=== PATIENT | female | born 1945 | race Caucasian/White ===

== ENCOUNTER 2024-11-09 08:44 | Outpatient (REF) | payer MEDICARE, SELFPAY ==
[2024-11-09 09:18] LABS: Basophils Percent Auto 0.2 % (0-2); Eosinophils Percent Auto 0.2 % (0-4); Hemoglobin 9.9 g/dl (12.0-16.0); Imm Gran Abs Auto 0.01 X10*3/uL (0.00-0.03); Imm Gran Pct Auto 0.2 % (0.0-0.4); Lymphocytes Absolute Auto 0.8 X10*3/uL (1.2-4.9); Lymphocytes Percent Auto 17.2 % (20-40); MANUAL DIFF FLAG SCAN; Mean Corpuscular Volume 90.9 fL (80.0-98.0); Mean Platelet Volume 8.8 fL (9.4-12.3); Monocytes Absolute Auto 0.9 X10*3/uL (0.1-1.2); Monocytes Percent Auto 20.8 % (2-11); Neutrophils Absolute Auto 2.7 x10*3/uL (2.0-8.3); Neutrophils Percent Auto 61.4 % (45-73); Platelet Count 192 X10*3/uL (160-400); Red Cell Distribution Width 17.4 % (11.0-16.0); SCAN SMEAR FLAG 1; White Blood Count 4.4 X10*3/uL (4.8-10.8)
--- OUTSIDE RECORDS SUMMARY | 2024-11-09 09:18 | XMS_ITS | Clinical Summary ---
Author Organization [facility], Address [address] [place] [address] [place] [address] Phone Care Team Providers Care Spool Maker Name Role Phone Rose Bhatt MD Primary Care Provider Allergies Active Allergy Reactions Criticality Noted Date Comments Penicillins Other (see comments) 12/04/2019 Medications ARIPiprazole (ABILIFY) 20 MG tablet Comments: Filled Date: Jan 13 2018 12:00AM Patient Notes: TK 1 T PO QD Duration: 30 8 Active gabapentin (NEURONTIN) 300 MG capsule Comments: Filled Date: Jan 04 2018 12:00AM Patient Notes: TK ONE C PO QAM AND QPM FOR 2 WEEKS THEN 1 C PO TID Duration: 34 8 Active carBAMazepine XR (TEGretol XR) 200 MG 12 hr tablet 1 Active clindamycin (CLEOCIN) 300 MG capsule TAKE 2 CAPSULES BY MOUTH 1 HOUR PRIOR TO DENTAL APPOINTMENT 2 Active buPROPion SR (WELLBUTRIN SR) 150 MG 12 hr tablet Take 150 mg by mouth 1 (one) time each day 3 Active Denosumab (Prolia) 60 MG/ML solution prefilled syringe Inject under the skin 2 Active famciclovir (FAMVIR) 250 MG tablet 2 Active Melatonin 5 MG tablet Take 1 tablet by mouth at bed time 3 Active niacinamide 100 MG tablet Take 100 mg by mouth in the morning and 100 mg in the evening. Take with meals. Active Cholecalciferol (Vitamin D) 25 MCG (1000 UT) tablet Take 1,000 Units by mouth 1 (one) time each day Active Multiple Vitamins-Minera ls (PRESERVISION AREDS 2 PO) Take 1 Capful by mouth in the morning and 1 Capful in the evening. Active Urea 15 g pack Take 10 g by mouth in the morning and 10 g in the evening. 60 each 5 4 Active Urea powder 10 mg in the morning and 10 mg in the evening. 1000 g 3 4 Active mycophenolate (CELLCEPT) 500 MG tablet TAKE 2 TABLETS BY MOUTH 2 TIMES A DAY 360 tablet 2 4 Active Active Problems Problem Noted Date Diagnosed Date History of immunosuppressive therapy 06/04/2022 Hypertensive disorder 11/11/2021 Hypo-osmolality and or hyponatremia 03/17/2021 Chronic kidney disease stage 2 12/04/2019 History of renal transplant 12/04/2019 Chronic kidney disease due to hypertension 12/03 Resolved Problems Problem Noted Date Diagnosed Date Resolved Date Personal history of immunosuppression therapy 08/02/20 22 08/02/2022 Chronic kidney disease 06/04/202208/02 Encounters Date Type Department Care Team Description 11/05/2024 Telephone [facility] [address] [place] [address] Yaima Mcgee MA from Last 3 Months Immunizations Name Administration Dates Next Due Influenza Split High Dose Pr eservative Free IM 06/13/2019,07/06/2016,06/23/2015 Influenza Vaccine, Quadrivalent, Adjuvanted 10/2019 Influenza, Unspecified 06/18/2021,06/06/2020 Moderna SARS-CoV-2 Bivalent 12+ 05/24/2022 Pfizer SARS-COV-2 04/24/2021,11/04/2020,10/12/19 21 Pneumococcal Conjugate 13-Valent 04/13/2019 SARS-CoV-2, Unspecified 12/09/2021 Zoster 07/04/2019,04/13/2019 Family History Medical History Relation Comments Kidney disease Mother Cancer Sibling 1 Hypertension Sibling 2 Cancer Sibling 3 Relation Status Comments Father Mother Sibling 1 Sibling 2 Sibling 3 Social History Tobacco Use Types Packs/Day Years Used Date Smoking Tobacco: Never Tobacco Cessation:Counseling Given: Not Answered Alcohol Use Standard Drinks/Week Comments No 0 (1 standard drink = 0.6 oz pure alcohol) Alcoholic Drinks/day: Occasional social drink Comments Unknown Sex and Gender Information Value Date Recorded Sex Assigned at Not on file Legal Sex Female 4:33 PM EST Gender Identity Not on file Sexual Orientation Not on file Last Filed Vital Signs Vital Sign Reading Time Taken Comments Blood Pressure 104/60 08/10/2024 11:06 AM EST Pulse - - Temperature - - Respiratory Rate 22 01/23/2018 12:0 0 PM EDT Oxygen Saturation - - Inhaled Oxygen Concentration - - Weight 47.5 kg (104 lb 12.8 oz) 024 11:06 AM EST Height 162.6 cm (5' 4 ) 02/17/2024 5:35 PM EDT Body Mass Index 17.99 02/17/2024 5:35 PM EDT Plan of Treatment Upcoming Encounters Date Type Department Care Team (Late st Contact Info) Description 12/27/2024 1:30 PM EDT Office Visit [facility] [address] [place] [phone] Malcom Mc MD [address] [place] [address] [place] [phone] Health Maintenance Due Date Last Done Comments Pneumococcal Vaccine: 65+ Years (2 of 2 - PPSV23 or PCV20) 06/08/2019 04/13/2019 Influenza Vaccine (#1) 2024 1, 06/06/2020, 06/06/2020, Additional history exists Hepatitis B Vaccine Aged Out No longe r eligible based on patient's age to complete this topic Insurance MEDICARE UNICARE Care Teams Spool Maker Relationship Specialty Start Date End Date Rose Bhatt MD [address] [place] [address] [address] [place] [address] PCP - General Endocrinology 02/17/24
--- OUTSIDE RECORDS SUMMARY | 2024-11-09 09:18 | XMS_ITS | Encounter Summary ---
Author Organization [facility], [place] [address] [place] [address] Phone Care Team Providers Care Biomass Boiler Operator Name Role Phone Rose Bhatt MD Primary Care Provider Reason for Visit * Reason Comments Med Refill Encounter Details Date Type Department Care Team (Late st Contact Info) Description 08/10/2023 Refill [facility], [address] [place] [address] Malcom Mc MD [address] [place] [address] [place] [address] Social History Tobacco Use Types Packs/Day Years Used Date Smoking Tobacco: Never Alcohol Use Standard Drinks/Week Comments No 0 (1 standard drink = 0.6 oz pure alcohol) Alcoholic Drinks/day: Occasional social drink Comments Unknown Sex and Gender Information Value Date Recorded Sex Assigned at Not on file Legal Sex Female 4:33 PM EST Gender Identity Not on file Sexual Orientation Not on file documented as of this encounter Plan of Treatment Upcoming Encounters Date Type Department Care Team (Late st Contact Info) Description 12/27/2024 1:30 PM EDT Office Visit [facility] [place] [address] [place] [address] Malcom Mc MD [address] [place] [address] [place] [address] documented as of this encounter Visit Diagnoses Not on filedocumented in this encounter Care Teams Biomass Boiler Operator Relationship Specialty Start Date End Date Rose Bhatt MD [address] [place] [address] [address] [place] [phone] PCP - General Endocrinology 02/17/24 documented as of this encounter
--- OUTSIDE RECORDS SUMMARY | 2024-11-09 09:18 | XMS_ITS | Encounter Summary ---
Author Organization [facility] Address [address] [place] [address] Phone Care Team Providers Care Internal Specialist Name Role Phone Rose Bhatt MD Primary Care Provider Encounter Details Date Type Department Care Team (Late st Contact Info) Description 11/05/2024 Telephone [facility] [place], [address] [place] [address] Yaima Mcgee [place] [address] [place] [address] Social History Tobacco Use Types Packs/Day Years [...] on file documented as of this encounter Miscellaneous Notes * Telephone Encounter - Yaima Mcgee MA - 11/05/2024 10:54 AM EST Lm on vm letting pt know due to a change in the providers schedule we had to cx 11/16/24 and move to12/17/24 @330 documented in this encounter Plan of Treatment Upcoming Encounters Date Type Department Care Team (Late st Contact Info) Description 12/27/2024 1:30 PM EDT Office Visit [facility] [place] [address] [place] [phone] Malcom Mc MD [address] [place] [phone] documented as of this encounter Visit Diagnoses Not on filedocumented in this encounter Care Teams Internal Specialist Relationship Specialty Start Date End Date Rose Bhatt MD [address] [place] [address] [address] [place] [phone] PCP - General Endocrinology 02/17/24 documented as of this encounter
--- OUTSIDE RECORDS SUMMARY | 2024-11-09 09:18 | XMS_ITS | Encounter Summary ---
Author Organization [facility] [place], Address [address] [place] [address] Phone Care Team Providers Care Poultry Veterinarian Name Role Phone Rose Bhatt MD Primary Care Provider Encounter Details Date Type Department Care Team (Late st Contact Info) Description 05/26/2022 Documentation Only [facility] [place], [address] [place] [address] Eleazar Barragan MD [address] [place] [address] [place] [address] Social History Tobacco Use Types [...] Visit [facility] [place] [address] [place] [address] Malcom Mc MD [address] [facility] [place] [address] documented as of this encounter Visit Diagnoses Not on filedocumented in this encounter Care Teams Poultry Veterinarian Relationship Specialty Start Date End Date Rose Bhatt MD [address] [place] [address] [address] [place] [address] PCP - General Endocrinology 02/17/24 documented as of this encounter
--- OUTSIDE RECORDS SUMMARY | 2024-11-09 09:18 | XMS_ITS | Encounter Summary ---
Author Organization [facility], Address [address] [place] [address] Phone Care Team Providers Care Paint Roller Covers Supervisor Name Role Phone Rose Bhatt MD Primary Care Provider Reason for Visit * Reason Comments Med Refill Encounter Details Date Type Department Care Team (Late Contact Info) Description 03/04/2020 Refill [facility] [address] [place] [address] Clayton Fontenot MD [address] [place] [address] [place] [address] Social History Tobacco Use Types Packs/Day Years Used Date Smoking Tobacco: Never Alcohol Use Standard Drinks/Week Comments No 0 (1 standard drink = 0.6 oz pur e alcohol) Comments Unknown Sex and Gender Information Value Date Recorded Sex Assigned at Not on file Legal Sex Female 4:33 PM EST Gender Identity Not on file Sexual Orientation Not on file documented as of this encounter Plan of Treatment Upcoming Encounters Date Type Department Care Team (Late Contact Info) Description 12/27/2024 1:30 PM EDT Office Visit [facility] [address] [place] [address] Malcom Mc MD [address] [place] [address] [place] [address] documented as of this encounter Visit Diagnoses Not on filedocumented in this encounter Care Teams Paint Roller Covers Supervisor Relationship Specialty Start Date End Date Rose Bhatt MD [address] [facility] [address] [address] [place] [phone] PCP - General Endocrinology 02/17/24 documented as of this encounter
--- OUTSIDE RECORDS SUMMARY | 2024-11-09 09:18 | XMS_ITS | Continuity of Care Document ---
Author Organization [facility] [address] [facility] [address] [place] [address] Phone [phone] Care Team Providers Care Curator Horticultural Museum Name Role Phone Saba Obrien Care Team Information Receive r [phone] Problems Active Problems Provider Date Chronic anemia Robbi Roblero M.D. Onset: Thyroid nodule Robbi Roblero M.D. Onset: Osteoporosis Robbi Roblero M.D. Onset: Chronic kidney disease stage 3 Robbi Roblero M.D. Onset: 06/25/2022 Essential hypertension Robbi Roblero M.D. Ons et: 06/25/2022 Carcinoma of breast Robbi Roblero M.D. Onset: 06/25/2022 Bipolar disorder Robbi Roblero M.D. Onset: History of malignant neoplasm of breast Robbi valderrama M.D. Onset: 06/25/2022 History of bilateral mastectomy Robbi Roblero M.D. Onset: 06/25/2022 History of renal transplant Edwin Griffin Onset: 06/25/2022 Disorder of kidney and/or ureter Robbi Roblero M.D. Onset: 07/08/2023 Obstructive sleep apnea syndrome Robbi Roblero M.D. Onset: 07/01/2023 Social History Type Date Description Comments Sex Unknown Lives With Spouse Tobacco Use Start: Unknown Never Smoked Cigarettes Smoking Status Reviewed: 12/29/22 Never Smoked Cigaret lewis ETOH Use Occasionally consumes wine Allergies and adverse reactions Active Allergies Criticality Reaction Severity Comments Date Penicillin Unable to assess criticality 06/25/2022 Medications Active Medications SIG Qnty Indications Order ing Provider Date [id number]- 0.5mg Tablets bid Robbi Roblero M.D. 01/10/2024 Qwukpdoquyv101qd Tablets 1 qd Robbi Roblero M.D. 12/29/2022 Nzewmu22zy/ml Soln Prefill Syringe inject 60 mg under the skin every 6 months 1ml Robbi Roblero M.D. 06/25/2022 Mycophenolate Jcijaef332nx Tablets 2 bid Robbi Roblero M.D. 06/25/2022 Awibibu89az Tablets 1 by mouth every day 90tabs Robbi Roblero M.D. 06/25/2022 Tegretol-RA970ht Tablets ER 12HR Takes 2 tab at night Robbi Roblero M.D. 06/25/2022 [id number] Capsules Take 2 Capsules By Mouth AT Bedtime Gisele Beck PA-C Clindamycin [id number] Capsules Take 2 Capsules By Mouth 1 Hour Prior To Dental Appointment Unknown Bupropion Hydrochloride ER (SR)200mg Tablets ER 12HR 1 by mouth every day Unknown UreaPowder 10 grams twice daily Unknown Vital Signs Date Vital Result Comment 10/12/2024 3:38pm BP Systolic 126 mmHg BP Diastolic 70 mmHg Heart Rate 93 /min Height 63 inches 5'3 Weight 100.38 lb BMI (Body Mass Index) 17.8 kg/m2 Results Test Acquired Date Facility Test Result H/L Range Note Comp. Metabolic Panel (14) 10/12/2024 [facility] Glucose 115 mg/dL High 70-99 BUN 14 mg/dL 8-27 Creatinine 0.56 mg/dL Low 0.57-1.00 eGFR 92 mL/min/1.73 >59 BUN/Creatinine Ratio 25 12-28 Sodium 123 mmol/L Low 134-144 Potassium 5.3 mmol/L High 3.5-5.2 Chloride 87 mmol/L Low 96-106 Carbon Dioxide, Total 22 mmol/L 20-29 Calcium 9.8 mg/dL 8.7-10.3 Protein, Total 6.4 g/dL 6.0-8.5 Albumin 3.6 g/dL Low 3.8-4.8 Globulin, Total 2.8 g/dL 1.5-4.5 Bilirubin, Total 0.2 mg/dL 0.0-1.2 Alkaline Phosphatase 92 IU/L 44-121 Ast (Sgot) 23 IU/L 0-40 Alt (SGPT) 23 IU/L 0-32 Urinalysis Complete W Reflex To Culture 10/12/2024 [facility] Specific [place] 1.024 1.005-1.03 0 pH 5.5 5.0-7.5 Urine-Color Yellow Yellow Appearance Clear Clear WBC Esterase 1+ Abnormal Negative Protein 1+ Abnormal Negative/T race Glucose Negative Negative Ketones Negative Negative Occult Blood Negative Negative Bilirubin Negative Negative Urobilinogen,Se mi-Qn 0.2 mg/dL 0.2-1.0 Nitrite, Urine Negative Negative Microscopic Examination See below: 1 Microscopic Examination TNP Urinalysis Reflex See Comment: 2 WBC >30 /hpf Abnormal 0 - 5 RBC 0-2 /hpf 0 - 2 Epithelial Cells (non renal) 0-10 /hpf 0 - 10 Epithelial Cells (renal) TNP Casts None seen /lpf None seen Cast Type TNP Crystals Present Abnormal N/A Crystal Type Calcium Oxalate N/A Mucus Threads TNP Bacteria None seen None seen/Few Yeast TNP Trichomonas TNP Comment TNP Urine Culture, Routine Final report Result 1 See Comment: 3 CBC With Differential/ Platelet 10/12/2024 [facility] WBC 7.7 x10E3/uL 3.4-10.8 RBC 3.82 x10E6/uL 3.77-5.28 Hemoglobin 11.4 g/dL 11.1-15.9 Hematocrit 34.2 % 34.0-46.6 MCV 90 fL 79-97 MCH 29.8 pg 26.6-33.0 MCHC 33.3 g/dL 31.5-35.7 RDW 12.3 % 11.7-15.4 Platelets 386 x10E3/uL 150-450 Neutrophils 76 % Not Estab. Lymphs 11 % Not Estab. Monocytes 12 % Not Estab. Eos 1 % Not Estab. Basos 0 % Not Estab. Immature Cells TNP Neutrophils (Absolute) 5.8 x10E3/uL 1.4-7.0 Lymphs (Absolute) 0.8 x10E3/uL 0.7-3.1 Monocytes(Absol petar) 0.9 x10E3/uL 0.1-0.9 Eos (Absolute) 0.1 x10E3/uL 0.0-0.4 Baso (Absolute) 0.0 x10E3/uL 0.0-0.2 Immature Granulocytes 0 % Not Estab. Immature Grans (Abs) 0.0 x10E3/uL 0.0-0.1 NRBC TNP Hematology Comments: TNP Laboratory test finding 07/13/2024 [facility] Calcium 10.1 mg/dL 8.7-10.3 Vitamin D, 25-Hydroxy 28.7 ng/mL Low 30.0-100.0 4 Laboratory test finding 05/02/2023 [facility] Calcium 10.2 mg/dL (8.6-10.5) N-Telopeptide Cross Links, Urine 03/23/2023 [facility] [id number] Duplicate order <SEE NOTE> 5 Cross Linked N-Telopeptides 898 6 Creat, Urine 112.1 7 N-Telopeptide/C reat Ratio 91 High 8 NTX Interpretaion Comment 9 Laboratory test finding 03/23/2023 [facility] Calcium 9.6 mg/dL (8.6-10.5) 10 Laboratory test finding 07/06/2022 [facility] Calcium 9.5 mg/dL (8.6-10.5) 1 Microscopic was mal cated and was performed. 2 This specimen has re flexed to a Urine Culture. 3 Culture shows less t baron 10,000 colony forming units of bacteria per milliliter of urine. This colony count is not generally considered to be clinically significant. 4 Vitamin D deficiency has been defined by the [place] of Medicine and an Endocrine Society practice guideline as a level of serum 25-OH vitamin D less than 20 ng/mL (1,2). The Endocrine Society went on to further define vitamin D insufficiency as a level between 21 and 29 ng/mL (2). 1. IOM ([place] of Medicine). 2010. Dietary reference intakes for calcium and D. [place]: The National Academies Press. 2. Ahmet JONES, Ash RON, Olga ZARATE, et al. Evaluation, treatment, and prevention of vitamin D deficiency: an Endocrine Society clinical practice guideline. JCEM. 2010; 96(7):1911-30. 5 Duplicate order canc elled via interface 6 Reference range: Not Estab. Unit: nmol [place] [address] 7 Reference range: Not Estab. Unit: mg/dL Test performed by [facility], [address] [place] [address] 8 Reference range: 0 t o 89 Unit: nM BCE/mM Cr 9 (NOTE) The N-telopeptide and Creatinine are used to calculate the N-telo/Creat. Ratio which is referred to as NTx . Suggested guidelines for the clinical use of NTx are as follows: 1. Menopausal Women not on Hormone Replacement Therapy (HRT): Women with a baseline NTx value >38 are at significant risk for a decrease in bone mineral density (BMD) after 1 year compared to women on HRT. The probability of a decline in BMD increases with NTx value as follows: (1): Baseline NTx Probability of Decrease in BMD 18- 38 1.4 p EQ 0.28 38- 51 2.5 p EQ 0.03 51- 67 3.8 p EQ 0.0006 67-188 17.3 p EQ 0.0001 2. Menopausal Women Receiving Antiresorptive Therapy: The probability that treatment is effective after three months is increased when the measured NTx value is <or EQ 38 nM BCE/mM CHUCK SPLITTER, or NTx has decreased >or EQ 30% from baseline.[1] 3. Patients with Paget's Disease of Bone: The probability that treatment is effective after one month is increased when the measured NTx value is within the reference range, or NTx has decreased >or EQ 30% from baseline.[2] 1. Francisco Javier CH, Miller NH, Jay GS, et al. Am J Med, 102:29-37,1997. (1):M757, 1996. 2. Bone H, Willam J, et al. J Bone Min Res.11(1):M757,1996 [place] [address] 10 Duplicate order canc elled via interface Medical Devices Description No Information Available Encounters Type Date Location Provider Dx Diagnosis Office Visit 11/06/2024 1:35p Main Office PALOMO [place]ida M81.0 Age-related osteoporosis w/o current pathological fracture F31.9 Bipolar disorder, un specified Assessments Date Code Description Provider 11/06/2024 M81.0 Age-related oste oporosis without current pathological fracture PALOMO Merida 11/06/2024 F31.9 Bipolar disorder PALOMO Arellano Plan of Treatment Future Appointment(s):* 12/20/2024 10:30 am - PALOMO Merida at Main Office 10/12/2024 - PALOMO Merida* S31.809A Unspecified open wound of unspecified buttock, initial encounter * R32 Unspecified urinary incontinence Functional Status Description No Information Available Mental Status Description No Information Available Referrals Description No Information Available
[2024-11-09 09:30] LABS: Anion Gap 11 (12-20); Blood Urea Nitrogen 10 mg/dL (9-16); Calcium 8.3 mg/dL (8.4-10.2); Carbon Dioxide 21 mmol/L (22-29); Chloride 98 mmol/L (96-108); Estimated Glomerular Filt Rate > 60; Glucose Random 79 mg/dL (60-115); Potassium 4.2 mmol/L (3.3-5.1); Sodium 126 mmol/L (135-145)
[2024-11-09 09:52] LABS: SLIDE REVIEW VERIFIED
== END 2024-11-09 08:45 | disposition home or self-care (01) ==
LOC: HO.MMNH2L 08:44
PROVIDERS: Nurse Practitioner; Visit Provider Student in an Organized Health Care Education/Training Program
DX: L89.90 Pressure ulcer of unspecified site, unspecified stage (principal); L03.90 Cellulitis, unspecified; E56.0 Deficiency of vitamin E
CPT/HCPCS: 36415; 80048; 85025

== ENCOUNTER 2024-11-12 07:40 | Outpatient (REF) | payer MEDICARE, SELFPAY ==
[2024-11-12 07:42] LABS: MANUAL DIFF FLAG NO
--- OUTSIDE RECORDS SUMMARY | 2024-11-12 07:43 | XMS_ITS | Encounter Summary ---
Author Organization [facility], Address [address] [place] [address] Phone Care Team Providers Care Supervisor Wash House Name Role Phone Rose Bhatt MD Primary Care Provider Reason for Visit * Reason Comments Med Refill Encounter Details Date Type Department Care Team (Late Contact Info) Description 03/04/2020 Refill [facility] [address] [place] [address] Clayton Fontenot MD [address] [place] [address] [place] [address] Social History Tobacco Use Types [...] Visit [facility] [address] [place] [address] Malcom Mc MD [address] [place] [address] [place] [address] documented as of this encounter Visit Diagnoses Not on filedocumented in this encounter Care Teams Supervisor Wash House Relationship Specialty Start Date End Date Rose Bhatt MD [address] [place] [phone] PCP - General Endocrinology 02/17/24 documented as of this encounter
--- OUTSIDE RECORDS SUMMARY | 2024-11-12 07:43 | XMS_ITS | Continuity of Care Document ---
Author Organization [facility] [address] [place] [address] Phone [phone] Care Team Providers Care Internal Corrosion Specialist Name Role Phone Saba Obrien Care Team Information Receive r [phone] Problems Active Problems Provider Date Chronic anemia [...] SIG Qnty Indications Order ing Provider Date Ryzshkurazpi828-08-4- 0.5mg Tablets bid Robbi Roblero M.D. 01/10/2024 Oshgboqxaxq224pd Tablets 1 qd Robbi Roblero M.D. 12/29/2022 Ktmpyu91uf/ml Soln Prefill Syringe inject 60 mg under the skin every 6 months 1ml Robbi Roblero M.D. 06/25/2022 Mycophenolate Nsmdemo071ry Tablets 2 bid Robbi Roblero M.D. 06/25/2022 Lactrsa52jj Tablets 1 by mouth every day 90tabs Robbi Roblero M.D. 06/25/2022 Tegretol-LK023xy Tablets ER 12HR Takes 2 tab at night Robbi Roblero M.D. 06/25/2022 Nkdrndrlnx566lv Capsules Take 2 Capsules By Mouth AT Bedtime Gisele Beck PA-C Clindamycin LVT076rs Capsules Take 2 Capsules By Mouth 1 [...] W Reflex To Culture 10/12/2024 [facility] Specific [facility] 1.024 1.005-1.03 0 pH 5.5 5.0-7.5 Urine-Color [...] Low 30.0-100.0 4 Laboratory test finding 05/02/2023 [facility] Calcium 10.2 mg/dL (8.6-10.5) N-Telopeptide Cross Links, Urine 03/23/2023 [facility] [id number] Duplicate order <SEE NOTE> 5 Cross Linked N-Telopeptides 898 6 Creat, Urine 112.1 7 N-Telopeptide/C reat Ratio 91 High 8 NTX Interpretaion Comment 9 Laboratory test finding 03/23/2023 [facility] Calcium 9.6 mg/dL (8.6-10.5) 10 Laboratory test finding 07/06/2022 [facility] Calcium 9.5 mg/dL (8.6-10.5) 1 Microscopic was mal cated and was performed. 2 This specimen has re flexed to a Urine Culture. 3 Culture shows less t baron 10,000 colony forming units of bacteria per milliliter of urine. This colony count is not generally considered to be clinically significant. 4 Vitamin D deficiency has been defined by the [place] of Medicine and an Endocrine Society practice guideline as a level of serum 25-OH vitamin D less than 20 ng/mL (1,2). The Endocrine Society went on to further define vitamin D insufficiency as a level between 21 and 29 ng/mL (2). 1. IOM ([place] of Medicine). 2010. Dietary reference intakes for calcium and D. [place]: The National Academies Press. 2. Ahmet JONES, Ash RON, Olga ZARATE, et al. Evaluation, treatment, and prevention of vitamin D deficiency: an Endocrine Society clinical practice guideline. JCEM. 2010; 96(7):1911-30. 5 Duplicate order canc elled via interface 6 Reference range: Not Estab. Unit: nmol [place] [address] 7 Reference range: Not Estab. Unit: mg/dL Test performed by [facility], [address] [place] [address] 8 Reference range: 0 t o 89 [...] value is <or EQ 38 nM BCE/mM WORKERS COMPENSATION SPECIALIST, or NTx has decreased >or EQ 30% [...] J Bone Min Res.11(1):M757,1996 [place] [address] 10 Duplicate order canc elled via interface [...]
--- OUTSIDE RECORDS SUMMARY | 2024-11-12 07:43 | XMS_ITS | Encounter Summary ---
Author Organization [facility], Address [address] [place] [address] Phone Care Team Providers Care Payroll Professional Name Role Phone Rose Bhatt MD Primary Care Provider Encounter Details Date Type Department Care Team (Late st Contact Info) Description 05/26/2022 Documentation Only [facility], [address] [place] [address] Eleazar Barragan MD [address] [place] [address] [place] [address] Social History Tobacco Use Types [...] Visit [facility] [address] [place] [address] Malcom Mc MD [address] [place] [address] documented as of this encounter Visit Diagnoses Not on filedocumented in this encounter Care Teams Payroll Professional Relationship Specialty Start Date End Date Rose Bhatt MD [address] [place] [address] [address] [place] [address] PCP - General Endocrinology 02/17/24 documented as of this encounter
--- OUTSIDE RECORDS SUMMARY | 2024-11-12 07:43 | XMS_ITS | Encounter Summary ---
Author Organization [facility] Address [address] [place] [address] Phone Care Team Providers Care Precision Optics Technician Name Role Phone Rose Bhatt MD Primary Care Provider Encounter Details Date Type Department Care Team (Late st Contact Info) Description 11/05/2024 Telephone [facility], [address] [place] [address] Yaima Mcgee [place] [address] [place] [address] Social History Tobacco Use Types [...] Visit [facility] [address] [place] [phone] Malcom Mc MD [address] [facility] [address] [place] [phone] documented as of this encounter Visit Diagnoses Not on filedocumented in this encounter Care Teams Precision Optics Technician Relationship Specialty Start Date End Date Rose Bhatt MD [address] [place] [address] [address] [place] [phone] PCP - General Endocrinology 02/17/24 documented as of this encounter
--- OUTSIDE RECORDS SUMMARY | 2024-11-12 07:43 | XMS_ITS | Encounter Summary ---
Author Organization [facility], [place] [address] [place] [address] Phone Care Team Providers Care Surgical Forceps Fabricator Name Role Phone Rose Bhatt MD Primary Care Provider Reason for Visit * Reason Comments Med Refill Encounter Details Date Type Department Care Team (Late st Contact Info) Description 08/10/2023 Refill [facility], [address] [place] [address] Malcom Mc MD [address] [place] [address] [place] [address] Social History Tobacco Use Types [...] Visit [facility] [address] [place] [address] Malcom Mc MD [address] [place] [address] [place] [address] documented as of this encounter Visit Diagnoses Not on filedocumented in this encounter Care Teams Surgical Forceps Fabricator Relationship Specialty Start Date End Date Rose Bhatt MD [address] [place] [address] [address] [place] [address] PCP - General Endocrinology 02/17/24 documented as of this encounter
--- OUTSIDE RECORDS SUMMARY | 2024-11-12 07:43 | XMS_ITS | Clinical Summary ---
Author Organization [facility], Address [address] [place] [address] [place] [address] Phone Care Team Providers Care Headhunter Name Role Phone Rose Bhatt MD Primary [...] Telephone [facility] [address] [place] [address] Yaima Mcgee MA from Last 3 [...] Visit [facility] [address] [place] [phone] Malcom Mc MD [address] [place] [address] [place] [phone] Health Maintenance Due Date Last Done Comments Pneumococcal Vaccine: 65+ Years (2 of 2 - PPSV23 or PCV20) 06/08/2019 04/13/2019 Influenza Vaccine (#1) 2024 1, 06/06/2020, 06/06/2020, Additional history exists Hepatitis B Vaccine Aged Out No longe r eligible based on patient's age to complete this topic Insurance MEDICARE [employer] Care Teams Headhunter Relationship Specialty Start Date End Date Rose Bhatt MD [address] [place] [address] [address] [place] [address] PCP - General Endocrinology 02/17/24
[2024-11-12 08:04] LABS: Basophils Percent Auto 0.3 % (0-2); Eosinophils Absolute Auto 0.1 X10*3/uL (0.0-0.4); Eosinophils Percent Auto 2.4 % (0-4); Hematocrit 31.2 % (37.0-47.0); Hemoglobin 10.3 g/dl (12.0-16.0); Imm Gran Abs Auto 0.01 X10*3/uL (0.00-0.03); Imm Gran Pct Auto 0.3 % (0.0-0.4); Lymphocytes Absolute Auto 1.3 X10*3/uL (1.2-4.9); Lymphocytes Percent Auto 33.9 % (20-40); Mean Corpuscular Hemoglobin 30.4 pg (27.0-33.0); Monocytes Absolute Auto 0.6 X10*3/uL (0.1-1.2); Monocytes Percent Auto 14.8 % (2-11); Neutrophils Absolute Auto 1.8 x10*3/uL (2.0-8.3); Neutrophils Percent Auto 48.3 % (45-73); Platelet Count 170 X10*3/uL (160-400); Red Blood Count 3.39 X10*6/uL (4.20-5.50); Red Cell Distribution Width 17.7 % (11.0-16.0); White Blood Count 3.7 X10*3/uL (4.8-10.8)
[2024-11-12 08:16] LABS: Anion Gap 14 (12-20); Blood Urea Nitrogen 8 mg/dL (9-16); Calcium 8.5 mg/dL (8.4-10.2); Carbon Dioxide 19 mmol/L (22-29); Chloride 104 mmol/L (96-108); Estimated Glomerular Filt Rate > 60; Glucose Random 76 mg/dL (60-115); Potassium 3.7 mmol/L (3.3-5.1); Sodium 133 mmol/L (135-145)
== END 2024-11-12 07:41 | disposition home or self-care (01) ==
LOC: HO.MMNH2L 07:40
PROVIDERS: Visit Provider Student in an Organized Health Care Education/Training Program
DX: L89.90 Pressure ulcer of unspecified site, unspecified stage (principal); L03.90 Cellulitis, unspecified; E56.9 Vitamin deficiency, unspecified
CPT/HCPCS: 36415; 80048; 85025